=== PATIENT | female | born 1960 | race Caucasian/White ===

== ENCOUNTER → 2019-06-19 09:34 | Outpatient (CLI) | payer OTHER, SELFPAY ==
--- NOTE | ~2019-06-19 | CT_ITS ---
EXAMINATION: CT soft tissue neck wo/w con EXAM DATE: 06/19/2019 09:58 INDICATION: Localized swelling, mass, lump left supraclavicular region. TECHNIQUE: Spiral CT of the neck was performed without and then with intravenous injection of 75 mL O mnipaque 350. Axial, coronal and sagittal images were reviewed. The dose-length product (DLP) for t his examination was 710.17 mGy-cm. The exposure was tailored according to patient size (auto mA expo sure control), and iterative reconstruction (ASIR) was used as additional dose reduction technique. There is no prior study for comparison. FINDINGS: There is externally placed metallic marker left supraclavicular region. There is no mass de ep to this, no evidence of an encapsulated lipoma. No sialolithiasis. The thyroid gland is unremarka ble. The submandibular and parotid glands are symmetric. There is no cervical lymphadenopathy. T here are no masses identified. The superior mediastinum is unremarkable. The airway is unremarka ble. Parapharyngeal and pre-glottic fat planes are preserved. The opacified vasculature is patent . The orbits are unremarkable. Visualized sinuses and mastoid air cells are well aerated. Ther e is cervical spondylosis. IMPRESSION: Unremarkable neck CT examination. Reviewed, dictated and finalized at location A.
== END ==
PROVIDERS: PCP Family Medicine; Visit Provider Nurse Practitioner Family
DX: R22.1 Localized swelling, mass and lump, neck (principal)
CPT/HCPCS: 70492; Q9967

== ENCOUNTER 2019-12-19 17:50 | Emergency (ER) | payer OTHER, SELFPAY ==
--- NOTE | ~2019-12-19 | XR_ITS ---
EXAMINATION: XR chest 2V DATE: 12/19/2019 22:07 INDICATION: Shortness of breath and fever. TECHNIQUE: Frontal and lateral views of the chest were obtained. COMPARISON: Chest 2 views 01/14/2019 FINDINGS: The chest demonstrates clear lungs without pneumonia, pleural effusion, or pneumothorax. Th e heart size is normal. IMPRESSION: 1. No acute cardiopulmonary disease. Reviewed, dictated and finalized at location A.
[2019-12-19 19:10] VITALS: BP 142/61; PULSE 116; RESP 18; TEMP 37.7; O2SAT 99
--- NOTE | 2019-12-19 19:18 | ECG_ITS ---
Measurements Intervals [place] Rate: 116 P: 44 IL: 165 QRS: 177 QRSD: 82 T: 59 QT: 292 QTc: 407 Interpretive Statements SINUS TACHYCARDIA POSSIBLE LEFT ATRIAL ENLARGEMENT MINIMAL Q WAVES- HIGH LATERAL LEADS ANTERIOR INFARCT, AGE INDETERMINATE ABNORMAL ECG Electronically Signed On 12-19-2019 20:33:06 CDT by Rober Falk D.O.
[2019-12-19 19:32] LABS: Basophils Absolute Auto 0.1 K/mm3 (0.0-0.1); Basophils Percent Auto 0.4 % (0.2-1.2); Eosinophils Percent Auto 0.2 % (0-4.4); Hemoglobin 14.2 g/dL (12.0-15.0); Immature Granulocyte Absolute 0.07 K/mm3 (0.00-0.031); Immature Granulocyte Percent A 0.4 % (0-0.5); Lymphocytes Absolute Auto 1.56 K/mm3 (0.9-3.2); Lymphocytes Percent Auto 9.6 % (18.3-44.2); Mean Corpuscular HGB Conc 33.8 g/dl (32-36); Mean Corpuscular Hemoglobin 31.5 pg (26-34); Mean Corpuscular Volume 93.1 fl (80-100); Mean Platelet Volume 10.9 fl (7.4-10.4); Monocytes Absolute Auto 0.7 K/mm3 (0.1-0.6); Monocytes Percent Auto 4.2 % (2.6-8.5); Neutrophils Absolute Auto 13.9 K/mm3 (1.3-6.7); Neutrophils Percent Auto 85.2 % (45.5-73.1); Platelet Count Result 328 k/mm3 (150-375); Red Blood Count 4.51 M/mm3 (4.2-5.4); Red Cell Distribution Width 13.8 % (11.5-14.5); White Blood Count 16.3 K/mm3 (4.5-10.0)
[2019-12-19 19:45] LABS: Anion Gap 7 mmol/L (8-16); Blood Urea Nitrogen 16 mg/dL (7-17); Calcium 10.4 mg/dL (8.4-10.2); Carbon Dioxide 27 mmol/L (22-30); Chloride 101 mmol/L (98-107); Estimated CRCL calculation 53 ml/min; Estimated Glomerular Filt Rate 57; Glucose 134 mg/dL (65-105); Potassium 4.2 mmol/L (3.4-5.0); Sodium 135 mmol/L (137-145)
[2019-12-19 22:00] VITALS: BP 124/73; PULSE 89; RESP 18; O2SAT 97
[2019-12-19] MEDS: ALBUTEROL SULFATE (*SP) INHALER 1 PUFF (22:30)
--- NOTE | 2019-12-19 22:33 | ED.GENADULT ---
HPI - General Adult General Chief complaint: Shortness of Breath/Dyspnea Stated complaint: fever, sob, hx asthma Time Seen by Provider: 12/19/19 21:50 Source: patient Mode of arrival: ambulatory Limitations: no limitations History of Present Illness HPI narrative: This patient is a 59 year old female with history of asthma who presents for evaluation of fever, sob. Patient states she has had sob and a nonproductive cough for 2 days. She has also had increasing sob since yesterday. She states she has severe asthma and she has been using her inhaler more. This afternoon at 2 pm she developed a fever of 100F, sob, nausea and frontal headache. She took ibuprofen at that time. She also reports midsternal chest pain that has been present for 24 hours. This pain has been constant and it is worse with cough. She describes her pain has pressure. Related Data Home Medications Medication Instructions Recorded Confirmed albuterol sulfate 90 mcg/actuation 1 puff INHALATION Q4H PRN 06/13/19 06/13/19 aerosol inhaler alprazolam 0.5 mg tablet 0.5 mg PO DAILY PRN 06/13/19 06/13/19 fluticasone 500 mcg-salmeterol 50 1 inhalation INHALATION Q12H 06/13/19 06/13/19 mcg/dose blistr powdr for inhalation zolpidem 5 mg tablet 5 mg PO HS 06/13/19 06/13/19 Allergies Allergy/AdvReac Type Severity Reaction Status Date / Time azithromycin Allergy Intermediate Hives Verified 12/19/19 19:16 erythromycin base Allergy Unknown TACHY Verified 12/19/19 19:15 HEARTRATE hydrocodone Allergy Unknown N/V Verified 12/19/19 19:15 poison osorio extract Allergy Unknown Rash Verified 12/19/19 19:15 Review of Systems Review of Systems: All systems reviewed & are unremarkable except as noted in HPI and below Constitutional: Constitutional: Reports fever(s) ENT: Denies sore throat Cardiovascular: Cardiovascular: Reports chest pain and Denies radiating jaw, neck or arm pain Respiratory: Respiratory: Reports cough, Reports dyspnea and Denies wheezing Gastrointestinal: Gastrointestinal: Denies abdominal pain, Denies diarrhea, Reports nausea and Denies vomiting Neurologic: Reports headache(s) PMFSH Past Medical History Medical History (Updated 12/20/19 @ 00:15 by Pilar Jean MD) Asthma Depression Surgical History Surgical History (Updated 06/13/19 @ 08:46 by Leatha Holley) H/O: S/P appendectomy S/P knee surgery Social History Social History (Updated 06/13/19 @ 08:46 by Leatha Holley) Smoking status: Never smoker Alcohol intake: current Gender identity (if verbalized by the patient): Female Exam Const: General: no acute distress and alert Orientation/consciousness: patient oriented x3 HENMT: Head: normocephalic and atraumatic Face and sinus: face symmetric Mouth: Yes Normal oral and palatal mucosa present, Yes lip normal, Yes oropharynx normal and Yes moist mucous membranes Throat: tonsils normal and uvula midline Eyes: Pupils: Equal, round and reactive pupils present EOM: EOMs intact bilaterally Neck: Neck: normal visual inspection Chest: Chest palpation & inspection: tenderness sternum Resp: Effort & Inspection: normal respiratory effort, no retractions and no use of accessory muscles Auscultation: clear to auscultation bilaterally Other: talking in complete sentences Cardio: Rate: regular rate Rhythm: regular rhythm Heart sounds: no murmurs GI: GI Palp: Yes Soft to palpation, No Tenderness to palpation present (GI), No Guarding due to palpation present (GI) and No Rigid due to palpation Back/Spine/Pelvis: Back: no CVA tenderness Skin: General skin exam: normal color Rashes: no rashes Neuro: General: patient oriented x3, moves all extremities and CN's II-XI intact bilaterally Course Reevaluation(s) Reevaluation #1: Patient states she feels better. Her headache is resolving. I discussed chest xray and ua clear. She does have leukocytosis. This seems unlikely b
[2019-12-19 22:34] VITALS: PULSE 95; RESP 20
[2019-12-19 22:37] LABS: Alanine Aminotransferase 30 U/L (4-35); Albumin Level 4.9 g/dL (3.5-5.1); Alkaline Phosphatase 92 U/L (38-126); Aspartate Amino Transferase 36 U/L (14-36); CRP 3.2 mg/dL (<1.0)
[2019-12-19 22:39] LABS: Prothrombin Time 12.9 Seconds (11.1-14.7)
[2019-12-19] MEDS: ONDANSETRON INJ 4 MG/2 ML VIAL IV PUSH (22:39)
[2019-12-19] MEDS: SODIUM CHLORIDE 0.9% IV 1,000 ML 999 ML IV CONT (22:39)
[2019-12-19 22:40] LABS: Partial Thromboplastin Time 33.1 SECONDS (22.3-36.8)
[2019-12-19 22:42] LABS: D Dimer 0.29 ug/mL (<0.48)
[2019-12-19 22:45] LABS: Lactic Acid Reflex 0.6 mmol/L (0.7-2.1)
[2019-12-19 22:46] LABS: Troponin I < 0.012 ng/mL (0.000-0.034)
[2019-12-19] MEDS: ALBUTEROL SULFATE (*SP) AEROSOL 1 PUFF 6 PUFF INHALATION (23:11)
[2019-12-19 23:30] VITALS: BP 110/68; PULSE 83; RESP 18; O2SAT 98
[2019-12-19 23:53] LABS: Add Urine Microscopic? NO; Appearance Urine Clear (Clear); Bilirubin Urine Negative (Negative); Blood Urine Negative (Negative); Color Urine Straw (Yellow); Glucose Urine UA Negative (Negative); Ketones Urine Negative (Negative); Leukocyte Esterase Ur Negative LEU/UL (Negative); Nitrate Urine Negative (Negative); Protein Urine Negative (Negative); Specific Grav Ur 1.006 (1.001-1.035); Urobilinogen Urine Negative mg/dL (<2.0)
[2019-12-20] MEDS: predniSONE 20 MG TABLET 60 MG PO (00:31)
[2019-12-20] MEDS: DOXYCYCLINE HYCLATE 100 MG TABLET PO (00:32)
[2019-12-20 00:39] VITALS: BP 98/62; PULSE 84; RESP 18; O2SAT 97
[2019-12-20 13:52] LABS: SARS-CoV-2 RNA PCR Negative
== END 2019-12-20 00:40 | disposition home or self-care (01) ==
PROVIDERS: Emergency Medicine; Emergency Provider General Practice; PCP Family Medicine
DX: J45.901 Unspecified asthma with (acute) exacerbation (principal); D72.829 Elevated white blood cell count, unspecified; Z20.828 Contact with and (suspected) exposure to other viral communicable diseases; R94.31 Abnormal electrocardiogram [ECG] [EKG]
CPT/HCPCS: 36415; 71046; 80048; 80076; 81003; 83605; 84484; 85025; 85380; 85610; 85730; 86140; 87635; 93005; 96361; 96365; 96375; 99284; A9270; C9803; J0131; J2405; J7030; J7512; U0003

== ENCOUNTER 2020-09-05 14:13 | Emergency (ER) | payer OTHER, SELFPAY ==
[2020-09-05 14:24] VITALS: BP 107/71; PULSE 80; RESP 18; TEMP 36.8; O2SAT 99
--- NOTE | 2020-09-05 14:48 | ED.GENADULT ---
HPI - General Adult General Chief complaint: Extremity Problem,Nontraumatic Stated complaint: Rt ankle Source: patient Mode of arrival: ambulatory Limitations: no limitations History of Present Illness HPI narrative: Patient presents for evaluation of pain in the right Achilles tendon region. She indicates she has had some discomfort in the affected area for the last month. Yesterday she was quite active going to a number of activities outdoors noted swelling overlying and adjacent to the Achilles tendon. States the pain in the affected area is constant, rated 8 out of 10 in severity, without descriptive quality, worse with weightbearing and movement. She tried taking some ibuprofen which helps somewhat. The past tramadol has helped alleviate pain for her. She denies any loss of range of motion and denies any paresthesias. Related Data Home Medications Medication Instructions Recorded Confirmed albuterol sulfate 90 mcg/actuation 1 puff INHALATION Q4H PRN 06/13/19 09/03/20 aerosol inhaler Allergies Allergy/AdvReac Type Severity Reaction Status Date / Time azithromycin Allergy Intermediate Hives Verified 09/03/20 08:26 erythromycin base Allergy Unknown TACHY Verified 09/03/20 08:26 HEARTRATE hydrocodone Allergy Unknown N/V Verified 09/03/20 08:26 poison osorio extract Allergy Unknown Rash Verified 09/03/20 08:26 Review of Systems Review of Systems: Narrative: CONSTITUTIONAL: Denies fever, chills, or sweats. EYES: Denies visual changes, redness, or discharge. ENT: Denies rhinorrhea, congestion, sore throat, or otalgia. CARDIOVASCULAR: Denies chest pain, palpitations, or edema. RESPIRATORY: Denies cough or dyspnea. GASTROINTESTINAL: Denies abdominal pain, nausea, vomiting, or diarrhea. GENITOURINARY: Denies dysuria or hematuria. SKIN: Denies rash or itching. MUSCULOSKELETAL: Reports pain and swelling overlying and adjacent to the right Achilles tendon. Denies back pain or myalgia. NEUROLOGIC: Denies headache, numbness, dizziness, or weakness. PSYCHIATRIC: Denies anxiety or depression. [facility] Past Medical History Medical History Asthma Depression Surgical History Surgical History H/O: S/P appendectomy S/P knee surgery Social History Social History Smoking status: Never smoker Second hand tobacco smoke exposure: Yes Alcohol intake: current Drinks per week: 4 Gender identity (if verbalized by the patient): Female Exam Narrative: Exam Narrative: GENERAL: Well-appearing, well-nourished, and in no acute distress. HEAD: Normocephalic, atraumatic. EYES: PERRLA and EOMI. ENT: Nares clear, no rhinorrhea or epistaxis. Mucous membranes moist. Oropharynx without tonsillar hypertrophy exudate or other lesions. Bilateral TMs pearly villarreal nonbulging NECK: Supple. No adenopathy or masses. No carotid bruits or JVD CHEST: Clear to auscultation. No respiratory distress. No wheezes rales or rhonchi HEART: Regular rate and rhythm. No murmur heard. Normal peripheral pulses. ABDOMEN: Soft, nontender, nondistended, normal active bowel sounds. EXTREMITIES: Soft tissue swelling overlying the right Achilles tendon with associated tenderness. There is no crepitus or deformity in the right ankle. She is able to dorsi and plantarflex the right foot. Negative Rosario's test SKIN: Warm, dry, no rash. NEURO: No focal deficits. Alert and oriented x3. PSYCH: Normal mood and affect. Course Course Emergency Course: This is a 59-year-old female who presents with pain and swelling over the right Achilles tendon. It appears that she has an Achilles tendinitis. There does not appear to be full disruption in the Achilles tendon. No signs test was negative. She has no pain in the medial or lateral malleolus and no range of motion deficits. I
== END 2020-09-05 14:58 | disposition home or self-care (01) ==
PROVIDERS: Emergency Provider Nurse Practitioner; PCP Internal Medicine
DX: M25.571 Pain in right ankle and joints of right foot (principal); M76.61 Achilles tendinitis, right leg; J45.909 Unspecified asthma, uncomplicated
CPT/HCPCS: 99213; G0463

== ENCOUNTER 2020-12-13 14:41 | Outpatient (CLI) | payer OTHER, SELFPAY ==
--- NOTE | 2020-12-13 16:19 | WPDPFTINT ---
PFT Procedure Performed PFT Procedure Performed Spirometry with Pre/Post Bronchodilator Plethysmography (Lung Vol) Diffusing Cap (DLCO) Flow Vol Loop PFT Interpretation This is a pulmonary function test with pre and post-bronchodilator spirometry, plethysmography and diffusing capacity. The test was performed and results interpreted in accordance with the 2019 and 2005 ATS/ERS Task Force guidelines respectively using the Global Lung Function Initiative-2012 reference equations. Patient demonstrated good effort and cooperation. Reproducibility criteria were met. The quality of the pre bronchodilator spirometry maneuver was Grade C and post bronchodilator spirometry maneuver was Grade A. Findings: Spirometry: There is decreased maximal expiratory airflow at all lung volumes with a mildly concave expiratory flow tracing. The pre bronchodilator FVC is 3.24 L, 104% predicted. The pre bronchodilator FEV1 is 1.85 L, 75% predicted. The FEV1: FVC ratio is 57%. The post bronchodilator FVC is 3.13 L, representing a 3% decrease. The post bronchodilator FEV1 is 2.08 L, representing to a 12% increase. Plethysmography: The total lung capacity of 5.23 L, 107% predicted. Functional residual capacity is 2.46 L, 89% predicted. The residual volume is 1.99 L, 105% predicted. Diffusion capacity: The absolute diffusion capacity is 17.2, 80% predicted. The diffusing capacity corrected for alveolar volume is 3.92, 87% predicted. Impression: There is a mild obstructive abnormality with significant improvement after inhaling a single dose of albuterol. The lung volumes are normal. The diffusing capacity is normal. There are no prior studies for comparison
== END 2020-12-13 14:42 | disposition home or self-care (01) ==
LOC: ANHPFT 14:45
PROVIDERS: PCP Family Medicine; Visit Provider Allergy & Immunology
DX: J45.40 Moderate persistent asthma, uncomplicated (principal)
CPT/HCPCS: 94060; 94726; 94729

== ENCOUNTER 2020-12-22 07:43 | Outpatient (CLI) | payer OTHER, SELFPAY ==
--- NOTE | ~2020-12-22 | MM_ITS ---
EXAMINATION: MM screening evelyn BI w julius HISTORY: Screening mammogram TECHNIQUE: Craniocaudal and mediolateral oblique 3-D tomosynthesis images were obtained and synthetic 2-D images were generated. CAD analysis was submitted and interpreted. COMPARISON: 06/01/2017, 09/29/2014 bilateral digital screening mammogram examinations BREAST PARENCHYMAL COMPOSITION: There are scattered areas of fibroglandular density. FINDINGS: There is no evidence of suspicious mass, calcification, or architectural distortion to sugg est malignancy in either breast. There has been no suspicious interval change. IMPRESSION: 1. No mammographic evidence of malignancy. 2. Recommend routine screening mammography in one year. BI-RADS Category 1: Negative Reviewed, dictated and finalized at location A.
== END 2020-12-22 07:44 | disposition home or self-care (01) ==
LOC: ANHIMG 07:44
PROVIDERS: PCP Family Medicine; Visit Provider Obstetrics & Gynecology
DX: Z12.31 Encounter for screening mammogram for malignant neoplasm of breast (principal)
CPT/HCPCS: 77063; 77067

== ENCOUNTER → 2021-05-04 12:41 | Outpatient (CLI) | payer OTHER, SELFPAY ==
--- NOTE | ~2021-05-04 | XR_ITS ---
XR chest 2V DATE: 05/04/2021 12:51 INDICATION: Preprocedural examination TECHNIQUE: 2 views COMPARISON: 12/19/2019 2 view chest FINDINGS: Normal heart size. No hilar or mediastinal enlargement. No pulmonary infiltrate or consolid ation, pleural effusion or pulmonary vascular congestion or pneumothorax. IMPRESSION: No active cardiopulmonary disease Reviewed, dictated and finalized at location B. GE PREVENTION COORDINATOR
== END ==
PROVIDERS: PCP Family Medicine; Visit Provider Family Medicine
DX: Z01.812 Encounter for preprocedural laboratory examination (principal); J45.909 Unspecified asthma, uncomplicated
CPT/HCPCS: 71046

== ENCOUNTER 2022-03-16 16:37 | Outpatient (CLI) | payer BC, SELFPAY ==
--- NOTE | ~2022-03-16 | MM_ITS ---
EXAMINATION: MM screening evelyn BI w julius HISTORY: Screening TECHNIQUE: Craniocaudal and mediolateral oblique 3-D tomosynthesis images were obtained and synthetic 2-D images were generated. CAD analysis was submitted and interpreted. COMPARISON: Comparison to multiple prior studies sequentially, with oldest reviewed study dated 05/2013. BREAST PARENCHYMAL COMPOSITION: There are scattered areas of fibroglandular density. FINDINGS: There is no evidence of suspicious mass, calcification, or architectural distortion to sugg est malignancy in either breast. There has been no suspicious interval change. IMPRESSION: 1. No mammographic evidence of malignancy. 2. Recommend routine screening mammography in one year. BI-RADS Category 1: Negative Reviewed, dictated and finalized at location B. COAT SEWER
== END 2022-03-16 16:38 | disposition home or self-care (01) ==
PROVIDERS: PCP Family Medicine; Visit Provider Obstetrics & Gynecology
DX: Z12.31 Encounter for screening mammogram for malignant neoplasm of breast (principal)
CPT/HCPCS: 77063; 77067

== ENCOUNTER 2023-08-06 09:58 | Emergency (ER) | payer BC, SELFPAY ==
--- NOTE | ~2023-08-06 | XR_ITS ---
EXAMINATION: XR ankle LT min 3V DATE: 08/06/2023 10:37 INDICATION: Left ankle pain and swelling. Fall. TECHNIQUE: 4 views of left ankle were obtained. COMPARISON: None. FINDINGS: Bone alignment is normal. No fracture. Joint spaces are normal. There are enthesophytes at the posterior and plantar aspects of calcaneal tuberosity. Ankle soft tissue swelling is noted. IMPRESSION: 1. No fracture. Reviewed, dictated and finalized at location A. IMPRESSION: 1. No fracture.
[2023-08-06 10:12] VITALS: BP 130/71; PULSE 60; RESP 18; TEMP 36.3; O2SAT 98
--- NOTE | 2023-08-06 10:28 | ED.LOWEXIN ---
HPI - Extremity Injury (Lower) General Chief Complaint: Extremity Problem,Nontraumatic Stated Complaint: Left Ankle Injury Time Seen by Provider: 08/06/23 10:37 Source: patient and RN notes reviewed Mode of arrival: ambulatory Limitations: no limitations History of Present Illness HPI Narrative: 62-year-old female presents with concern for injury after a fall. She reports she tripped and hit her chest on the railing of her house boat, she rolled her ankle and landed on her knee. She reports she has some bruising to the left chest, left upper arm, knee. She reports her ankle in her near bothering her the most. She denies any chest pain, pain with breathing. She reports she has been using a wrap on her ankle. MD complaint: knee injury and ankle injury Related Data Home Medications Medication Instructions Recorded Confirmed multivitamin 1 tablet PO DAILY 10/22/20 05/04/21 Allergies Allergy/AdvReac Type Severity Reaction Status Date / Time azithromycin Allergy Intermediate Hives Verified 08/06/23 10:17 erythromycin base Allergy Unknown TACHY Verified 08/06/23 10:17 HEARTRATE poison osorio extract Allergy Unknown Rash Verified 08/06/23 10:17 hydrocodone AdvReac Unknown N/V Verified 08/06/23 10:17 Review of Systems Review of Systems: CONSTITUTIONAL: Denies malaise, chills, sweats, or fever. SKIN: Denies rash or itching, open skin, laceration, abrasion, redness, warmth, swelling. MUSCULOSKELETAL: Reports left ankle and knee knee pain, swelling, bruising of the knee NEUROLOGIC: Denies numbness, weakness All systems reviewed & are unremarkable except as noted in HPI and below PMFSH Past Medical History Medical History Allergies Annual physical exam Anxiety Arthritis Asthma Asthma Depression Screening for cholesterol level Screening for thyroid disorder Surgical History Surgical History H/O elbow surgery H/O wisdom tooth extraction H/O: Hx of tonsillectomy S/P appendectomy S/P knee surgery Family History Family History Mother Diabetes mellitus Hypertension Cerebrovascular accident Son Asthma Depression Social History Social History Smoking status: Never smoker Second hand tobacco smoke exposure: Yes Alcohol intake: current Drinks per week: 7 Alcohol use details: wine/whiskey Substance use: current Substance use type: marijuana Other substance usage details: gummy night only and CBC/THC lotion Living arrangements: with family 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 There is no relevant family history pertinent to the presenting complaint Exam Narrative: GENERAL: Well-appearing, well-nourished, and in no acute distress. HEAD: Normocephalic, atraumatic. EYES: PERRLA, conjunctivae clear NECK: Supple. CHEST: Speaks in full sentences. No respiratory distress. HEART: Regular rate and rhythm. Normal and equal peripheral pulses. EXTREMITIES: Left lower extremity has grossly normal strength and sensation, gross normal range of motion. Mild anterior knee edema, abrasion, ecchymosis. Lateral ankle edema. Normal sensation with sensitivity to light touch and pain. Knee and ankle tenderness. No open wounds, no skin tenting, no devitalized tissue or atrophy, no trophic changes, no obvious deformity, alignment normal, nearby joints and structures intact. Distal pulses palpable and equal bilaterally, skin warm, dry, pink. Capillary refill less than 3 seconds. SKIN: Warm, dry, no rash. NEURO: Alert
== END 2023-08-06 10:59 | disposition home or self-care (01) ==
PROVIDERS: Emergency Provider Nurse Practitioner; PCP Family Medicine
DX: S93.402A Sprain of unspecified ligament of left ankle, initial encounter (principal); S80.02XA Contusion of left knee, initial encounter; W01.0XXA Fall on same level from slipping, tripping and stumbling without subsequent striking against object, initial encounter
CPT/HCPCS: 73610; 99213; G0463

== ENCOUNTER 2023-12-21 15:09 | Outpatient (CLI) | payer OTHER, SELFPAY ==
--- NOTE | ~2023-12-21 | MM_ITS ---
EXAMINATION: MM screening evelyn BI w julius HISTORY: Screening mammogram TECHNIQUE: Craniocaudal and mediolateral oblique 3-D tomosynthesis images were obtained and synthetic 2-D images were generated. CAD analysis was submitted and interpreted. COMPARISON: 03/16/2022, 12/22/2020, 06/01/2017 BREAST PARENCHYMAL COMPOSITION:Not Dense. The breasts are almost entirely fatty FINDINGS: No suspicious mass, calcification, or architectural distortion are identified in either marissa ast to suggest malignancy. There has been no suspicious interval change. IMPRESSION: No mammographic evidence of malignancy. Recommend routine screening mammography in one year. BI-RADS Category 1: Negative Reviewed, dictated and finalized at location .
== END 2023-12-21 15:10 | disposition home or self-care (01) ==
LOC: ANHIMG 15:26
PROVIDERS: PCP Physician Assistant Medical; Visit Provider Obstetrics & Gynecology
DX: Z12.31 Encounter for screening mammogram for malignant neoplasm of breast (principal)
CPT/HCPCS: 77063; 77067

== ENCOUNTER 2024-05-26 07:45 | Outpatient (NON) | payer OTHER, SELFPAY ==
--- OUTSIDE RECORDS SUMMARY | 2024-05-27 07:54 | XMS_ITS | Continuity of Care Document ---
Author Organization [facility] Address [address] [place] [address] Phone Care Team Providers Care Hoof And Shoe Inspector Name Role Phone Farnsworth OD, Agustin Unavailable Unavailable Advance Directives Directive Yes / No Effective Date File Name No Information Encounters Encounter Description Practice Location Reason(s) For Visit Diagnoses Date Provider Providers Copied on Encounter [facility], [address], [place], [place], [id number], [place] tel:[phone] [facility] No Information Mar-0 8-200 2 Farnsworth OD Agustin. [address] , [address], [place], [address], [place]. tel:[phone] Family History Family Member Type Diagnosis Age At Onset No Information Payers Payer name Insurance type Covered democrat ID Authoriza tion(s) No Information Social History [...]
== END 2024-05-26 07:46 | disposition home or self-care (01) ==
LOC: ANHLAB 05-27 07:48
PROVIDERS: PCP Nurse Practitioner Family; Visit Provider Internal Medicine Gastroenterology
DX: D12.4 Benign neoplasm of descending colon (principal); D12.3 Benign neoplasm of transverse colon; Z12.11 Encounter for screening for malignant neoplasm of colon
CPT/HCPCS: 88305

== ENCOUNTER 2024-05-26 08:42 | Day surgery (SDC) | payer OTHER, SELFPAY ==
[2024-03-03 07:51] VITALS: BMI 31.8
[2024-05-05 12:56] VITALS: BMI 32.0
--- NOTE | 2024-05-26 06:58 | P.PNAN_ITS ---
Anes - Initial Pre Proc Eval Procedure: Operation Date: 05/26/24 11:00 Proposed Procedures p Diagnostic Colonoscopy - Henry Chavez MD Date/Time: 05/26/24 06:58 Surgeon: Henry Chavez MD Pre Op Diagnosis: R19.5 Other Fecal Abnormalities Patient Data Age: 63 Gender: F Height: 1.57 m Weight: 79.5 kg Allergies Allergy/AdvReac Type Severity Reaction Status Date / Time azithromycin Allergy Intermediate Hives Verified 05/26/24 10:27 erythromycin base Allergy Unknown TACHY Verified 05/26/24 10:27 HEARTRATE poison osorio extract Allergy Unknown Rash Verified 05/26/24 10:27 hydrocodone AdvReac Unknown N/V Verified 05/26/24 10:27 Home Medications ?Medication ?Instructions ?Recorded ?Confirmed ?Type multivitamin 1 tablet PO DAILY 10/22/20 05/26/24 History albuterol sulfate 90 mcg/actuation 1 puff inhalation Q4H PRN 10/31/23 05/26/24 Rx aerosol inhaler shortness of breath or wheezing #8.5 grams atorvastatin 10 mg tablet 10 mg PO DAILY #90 tabs 10/31/23 05/26/24 Rx estradiol 10 mcg vaginal tablet 10 mcg vaginal 2XW 02/05/24 05/26/24 History (Vagifem) fluticasone fur. 200 mcg-umeclid 1 inh inhalation DAILY #60 ea 02/05/24 05/26/24 Rx 62.5 mcg-vilant 25 mcg inhalat.powder (Trelegy Ellipta) Patient hx anesthesia problems: none Family hx anesthesia problems: none Results Review: All pre-operative results and documents have been reviewed as part of the pre- operative evaluation. [facility] Past Medical History Medical History (Updated 05/26/24 @ 12:10 by Henry Chavez MD) Anxiety Depression Asthma Surgical History Surgical History Hx of tonsillectomy H/O wisdom tooth extraction H/O elbow surgery S/P knee surgery H/O: S/P appendectomy Family History Family History Mother Diabetes mellitus Hypertension Cerebrovascular accident Son Asthma Depression Social History Social History Social History: 01/31/24 Very confident with medical forms Smoking status: Never smoker Second hand tobacco smoke exposure: Yes Alcohol intake: current Drinks per week: 5 Alcohol use details: wine/whiskey Substance use: current Substance use type: marijuana Other substance usage details: hasn't used for >2 months Do You Feel Safe in your Home?: Yes Lack of Transportation: No Lack of Food: Never True Current Housing: I Have Housing Concerned About Future Housing: No Difficulty Paying Gas/Electric Bills: No Difficulty Paying for Meds: No Currently Unemployed: No Education: Master's Degree or Higher Difficulty w/ Childcare or Family Care: No Living arrangements: with family Occupation/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: occupation 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 Gender identity (if verbalized by the patient): Female Spiritual care concerns: No Agree to blood products: Yes Anes - Eval Final PreProcedure Day of Procedure 05/26/24 06:58 Patient weight: obese Heart: regular rate and rhythm Lungs: clear to auscultation Airway: Mallampati scale class II Neurological: alert and oriented Last oral intake: >/= 8 hours ASA classification: III Emergent: no Anesthetic plan: proceed Anesthesia type and monitoring: general GIVS and standard monitoring Results Review: All pre-operative results and documents have been reviewed as part of the pre- operative evaluation. Informed Consent: The patient's anesthetic plan and its attendant risks and benefits were discussed with the patient/family/POA. Questions were solicited and answers provided to the satisfaction of the patient/family/POA.
[2024-05-26 10:29] VITALS: BP 120/93; PULSE 87; RESP 14; TEMP 36.5; O2SAT 98; BMI 31.9
[2024-05-26] MEDS: LACTATED RINGERS 1,000 ML 150 ML IV CONT (10:45)
--- OUTSIDE RECORDS SUMMARY | 2024-05-26 11:24 | XMS_ITS | Continuity of Care Document ---
Author Organization [facility] Address [address] [place] [address] Phone Care Team Providers Care Animal Ride Attendant Name Role Phone Farnsworth OD, Agustin Unavailable Unavailable Advance Directives Directive Yes / No Effective Date File Name No Information Encounters Encounter Description Practice Location Reason(s) For Visit Diagnoses Date Provider Providers Copied on Encounter [facility], [address], [place], [place], [id number], [place] tel:[phone] [facility] No Information Mar-0 8-200 2 Farnsworth OD Agustin. [address] , [address], [place], [address], [place]. tel:[phone] Family History Family Member Type Diagnosis Age At Onset No Information Payers Payer name Insurance type Covered alliance party ID Authoriza tion(s) No Information Social History Type Description Quantity Date Captured Comments Sex Female Smoking Status No Information Chief Complaint And Reason For Visit No Information Reason For Referral Reason For Referral No Information History Of Present Illness Encounter Date Complaint History Of Prese nt Illness No Information Functional Status Date Functional Assessmen t No Information Instructions Date Instruction Additional Infor mation No Information Assessments Type Assessment Date No Information Patient Care Teams Name Effective Dates (start - stop) Status Members No Information
--- NOTE | 2024-05-26 12:09 | PM.IMHP ---
H&P: HPI History of Present Illness Date/Time: 05/26/24 12:09 Chief Complaint: Screening colonoscopy Narrative: This is the patient's first colonoscopy. There are no GI symptoms and there is no family history of colorectal cancer. Review of Systems Review of Systems: All systems reviewed & are unremarkable except as noted in HPI and below PMFSH Past Medical History Medical History (Updated 05/26/24 @ 12:10 by Henry Chavez MD) Anxiety Depression Asthma Surgical History Surgical History Hx of tonsillectomy H/O wisdom tooth extraction H/O elbow surgery S/P knee surgery H/O: S/P appendectomy Family History Family History Mother Diabetes mellitus Hypertension Cerebrovascular accident Son Asthma Depression Social History Social History Social History: 01/31/24 Very confident with medical forms Smoking status: Never smoker Second hand tobacco smoke exposure: Yes Alcohol intake: current Drinks per week: 5 Alcohol use details: wine/whiskey Substance use: current Substance use type: marijuana Other substance usage details: hasn't used for >2 months Do You Feel Safe in your Home?: Yes Lack of Transportation: No Lack of Food: Never True Current Housing: I Have Housing Concerned About Future Housing: No Difficulty Paying Gas/Electric Bills: No Difficulty Paying for Meds: No Currently Unemployed: No Education: Master's Degree or Higher Difficulty w/ Childcare or Family Care: No Living arrangements: with family 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/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: occupation 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 200 mcg-umeclid 1 inh inhalation DAILY #60 ea 02/05/24 05/26/24 Rx 62.5 mcg-vilant 25 mcg inhalat.powder (Trelegy Ellipta) Allergies Allergy/AdvReac Type Severity Reaction Status Date / Time azithromycin Allergy Intermediate Hives Verified 05/26/24 10:27 erythromycin base Allergy Unknown TACHY Verified 05/26/24 10:27 HEARTRATE poison osorio extract Allergy Unknown Rash Verified 05/26/24 10:27 hydrocodone AdvReac Unknown N/V Verified 05/26/24 10:27 Vital Signs Vital Signs - 24 hr 05/26/24 10:29 Temperature 97.7 F Pulse Rate 87 Respiratory Rate 14 Blood Pressure 120/93 H Pulse Oximetry 98 Oxygen Delivery Room Air Exam Const: General: cooperative and healthy appearing Resp: Effort & Inspection: normal respiratory effort and able to speak in complete sentences Auscultation: clear to auscultation bilaterally Cardio: Rate: regular rate Rhythm: regular rhythm GI: Inspection: normal to inspection GI Palp: No No hepatosplenomegaly present Auscultation: normal bowel sounds Rectal Exam: deferred Skin: General skin exam: normal color Psych: Appearance: grossly normal Mental Status: mental status grossly normal Assessment and Plan Assessment and plan (1) Encounter for screening colonoscopy: Code(s): Z12.11 - Encounter for screening for malignant neoplasm of colon Status: Acute Assessment and Plan: The patient is deemed a good candidate for the procedure. Consent signed. Will proceed.
[2024-05-26] MEDS: SIMETHICONE ORAL SUSPENSION 20 MG/0.3 ML 30 ML BOTTLE 0.6 ML IRRIGATION (12:27)
[2024-05-26 12:39] VITALS: BP 103/62; PULSE 74; RESP 15; O2SAT 98
[2024-05-26 12:49] VITALS: BP 117/71; PULSE 70; RESP 16; O2SAT 96
[2024-05-26 12:59] VITALS: BP 130/72; PULSE 58; RESP 16; O2SAT 98
--- NOTE | 2024-05-26 13:16 | WPDANESPN ---
Anes - Prog Note Post-Op Date/Time: 05/26/24 13:16 Cardiovascular status: normal Respiratory status: normal Airway patency: baseline Mental status: baseline Post-Op hydration status: normal Vital Signs: Last Vital Signs Temp 36.5 C 05/26/24 10:29 Pulse 58 L 05/26/24 12:59 Resp 16 05/26/24 12:59 BP 130/72 05/26/24 12:59 Pulse Ox 98 05/26/24 12:59 O2 Del Method Room Air 05/26/24 12:59 Pain Score (VAS): 0 I/O: Intake & Output 05/25/24 05/26/24 05/26/24 23:59 07:59 15:59 Intake Total 800 Balance 800 Post-procedural complaints: none Patient Feedback: Patient satisfied with anesthetic care. Other Findings: Patient vital signs back to baseline. Patient denies nausea and vomiting. Patient's pain under control. Patient OK for discharge.
== END 2024-05-26 13:07 | disposition home or self-care (01) ==
PROVIDERS: PCP Nurse Practitioner Family; Referring Provider Nurse Practitioner Family; Visit Provider Internal Medicine Gastroenterology
PROC: 0DJD8ZZ Inspection of Lower Intestinal Tract, Via Natural or Artificial Opening Endoscopic (ICD-10-PCS; CPT 45378; principal; 2024-05-26 11:00)
DX: Z12.11 Encounter for screening for malignant neoplasm of colon (principal); D12.2 Benign neoplasm of ascending colon; D12.3 Benign neoplasm of transverse colon; K57.30 Diverticulosis of large intestine without perforation or abscess without bleeding
CPT/HCPCS: 45385

== ENCOUNTER 2024-06-15 15:06 | Emergency (ER) | payer OTHER, SELFPAY ==
--- OUTSIDE RECORDS SUMMARY | 2024-06-15 15:08 | XMS_ITS | Continuity of Care Document ---
Author Organization [facility] Address [address] [place] [address] Phone Care Team Providers Care Desktop Operator Name Role Phone Farnsworth OD, Agustin Unavailable Unavailable Advance Directives Directive Yes / No Effective Date File Name No Information Encounters Encounter Description Practice Location Reason(s) For Visit Diagnoses Date Provider Providers Copied on Encounter [facility], [address], [place], [place], [id number], [place] tel:[phone] [facility] No Information Mar-0 8-200 2 Farnsworth OD Agustin. [address] , [address], [place], [address], [place]. tel:[phone] Family History Family Member Type Diagnosis Age At Onset No Information Payers Payer name Insurance type Covered constitution party ID Authoriza tion(s) No Information Social [...]
--- OUTSIDE RECORDS SUMMARY | 2024-06-15 15:11 | XMS_ITS | Continuity of Care Document ---
Author Organization [facility] Address [address] [place] [address] Phone Care Team Providers Care Classified Advertising Manager Name Role Phone Farnsworth OD, Agustin Unavailable Unavailable Advance Directives Directive Yes / No Effective Date File Name No Information Encounters Encounter Description Practice Location Reason(s) For Visit Diagnoses Date Provider Providers Copied on Encounter [facility], [address], [place], [place], [id number], [place] tel:[phone] [facility] No Information Mar-0 8-200 2 Farnsworth OD Agustin. [address] , [address], [place], [address], [place]. tel:[phone] Family History Family Member Type Diagnosis Age [...]
[2024-06-15 15:15] VITALS: BP 123/71; PULSE 116; RESP 16; TEMP 36.4; O2SAT 97
--- NOTE | 2024-06-15 15:34 | PC.NURSE ---
Addendum entered by Janet Bowser RN 06/15/24 15:43: episode lasted 1 minute, not 5. 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 Her caught her so she did not fall.
--- NOTE | 2024-06-15 15:36 | ED.NAVMDI ---
HPI - Nausea/Vomiting/Diarrhea General Chief complaint: Nausea/Vomiting/Diarrhea Stated complaint: vomiting/diarrhea Time Seen by Provider: 06/15/24 15:28 Source: patient, family () and RN notes reviewed Mode of arrival: ambulatory Limitations: no limitations History of Present Illness HPI Narrative: Patient presents today complaining of nausea, vomiting, diarrhea, abdominal pain since yesterday. Diarrhea is watery. Vomiting and diarrhea episodes have been numerous enough to be uncountable. Patient also complaining of a headache. She is unable to keep down any fluids at this time. Denies any blood or mucus in the stool. Denies any current fever. She just returned yesterday from a 1 week vacation in [place]. She has been taking some [id number] nausea medication without much relief. has no similar symptoms. 3 hours ago patient had a syncopal episode at home with loss of consciousness for approximately 1 minute. This LOC was witnessed by . Patient did not fall. Related Data Home Medications ?Medication ?Instructions ?Recorded ?Confirmed ?Last Taken ?Type multivitamin 1 tablet PO DAILY 10/22/20 05/26/24 Unknown History estradiol 10 mcg vaginal tablet 10 mcg vaginal 2XW 02/05/24 05/26/24 Unknown History (Vagifem) Allergies Allergy/AdvReac Type Severity Reaction Status Date / Time azithromycin Allergy Intermediate Hives Verified 06/15/24 15:16 poison osorio extract Allergy Unknown Rash Verified 06/15/24 15:16 erythromycin base AdvReac Unknown TACHY Verified 06/15/24 15:16 HEARTRATE hydrocodone AdvReac Unknown N/V Verified 06/15/24 15:16 Review of Systems Review of Systems: CONSTITUTIONAL: Denies body aches, fever, chills, or sweats. EYES: Denies visual changes, redness, or discharge. ENT: Denies rhinorrhea, congestion, sore throat, or otalgia. CARDIOVASCULAR: Denies chest pain, palpitations, or edema. RESPIRATORY: Denies cough or dyspnea. GASTROINTESTINAL: +nausea, vomiting, diarrhea, abdominal cramping GENITOURINARY: Denies dysuria or hematuria. SKIN: Denies rash, itching, or wounds. MUSCULOSKELETAL: Denies back pain, joint pain, or myalgia. NEUROLOGIC: Denies numbness, tingling, or weakness.+headache PSYCH: Denies depression or anxiety. PMFSH Past Medical History Medical History Anxiety Depression Asthma Surgical History Surgical History Hx of tonsillectomy H/O wisdom tooth extraction H/O elbow surgery S/P knee surgery H/O: S/P appendectomy Family History Family History Mother Diabetes mellitus Hypertension Cerebrovascular accident Son Asthma Depression Social History Social History Social History: 01/31/24 Very confident with medical forms Smoking status: Never smoker Second hand tobacco smoke exposure: Yes Alcohol intake: current Drinks per week: 5 Alcohol use details: wine/whiskey Substance use: current Substance use type: marijuana Other substance usage details: hasn't used for >2 months Do You Feel Safe in your Home?: Yes Lack of Transportation: No Lack of Food: Never True Current Housing: I Have Housing Concerned About Future Housing: No Difficulty Paying Gas/Electric Bills: No Difficulty Paying for Meds: No Currently Unemployed: No Education: Master's Degree or Higher Difficulty w/ Childcare or Family Care: No Living arrangements: with family 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 Please see nursing chart for further information. There is no relevant family history pertinent to the presenting complaint Exam Narrative: GENERAL: Mildly ill-appearing, well-nourished, diaphoretic HEAD: Normocephalic, atraumatic. EYES: EOMI. No redness or drainage. Conjunctivae normal. ENT: Mucous membranes pink and moist. NECK: Normal AROM. Supple. No lymphadenopathy. CHEST: No respiratory distress. Clear to auscultation. HEART: Regular rhythm. + tachycardic. No murmur appreciated. Normal peripheral pulses. ABDOMEN: Soft, nontender, nondistended, normal active bowel sounds. EXTREMITIES: Normal range of motion. No edema. SKIN: Warm, dry, no rash. Capillary refill normal. Normal skin turgor. NEURO: No focal deficits. Alert and oriented x3. Gait steady. PSYCH: Normal affect. No signs of depression or anxiety. Course Course Level of Care: Express Care Visit Vital Signs Vital signs: Vital Signs Temperature 97.6 F 06/15/24 15:15 Pulse Rate 116 H 06/15/24 15:15 Respiratory Rate 16 06/15/24 15:15 Blood Pressure 123/71 06/15/24 15:15 Pulse Oximetry 97 06/15/24 15:15 Oxygen Delivery Room Air 06/15/24 15:15 Temperature 97.6 F 06/15/24 15:15 Pulse Rate 116 H 06/15/24 15:15 Respiratory Rate 16 06/15/24 15:15 Blood Pressure 123/71 06/15/24 15:15 Pulse Oximetry 97 06/15/24 15:15 Oxygen Delivery Room Air 06/15/24 15:15 Reviewed Transfer Transfered to: [facility] Transportation: Other (Private vehicle) Transfer rationale: Syncopal episode, vomiting and diarrhea Accepting physician: Trevon MDM - Nausea/Vomiting/Diarrhea MDM Narrative Medical decision making narrative: Patient will be transferred to the ER for further evaluation and treatment. Differential Diagnosis Differential diagnosis: Likely traveler's diarrhea, food poisoning, gastroenteritis and other (Dehydration, electrolyte imbalance, syncope) Critical Care Time Critical Care Time Critical Care Time: No Discharge Plan Discharge Clinical Impression: Nausea vomiting and diarrhea Episode of syncope Qualifiers: Syncope type: unspecified Qualified Code(s): R55 - Syncope and collapse Patient Disposition: Acute Care Hospital Condition: Stable Patient Language: Vietnamese Prescriptions: No Action multivitamin Tablet 1 tablet PO DAILY estradiol [Vagifem] 10 mcg tablet 10 mcg vaginal 2XW Trelegy Ellipta 200-62.5-25 mcg blister with device 1 inh inhalation DAILY Qty: 60 5RF albuterol sulfate 90 mcg/actuation HFA aerosol inhaler 1 puff inhalation Q4H PRN (Reason: shortness of breath or wheezing) Qty: 8.5 1RF atorvastatin 10 mg tablet 10 mg PO DAILY Qty: 90 1RF Follow-up/Referrals: UNKNOWN,DOCTOR [Primary Care Provider] - Time of Disposition: 15:35
[2024-06-15 15:45] LABS: EDCOVIDSCREEN Negative (Negative); EDINFLUASCREEN Negative (Negative); EDINFLUBSCREEN Negative (Negative)
== END 2024-06-15 15:36 | disposition short-term general hospital (02) ==
LOC: EXPTROY 15:09
PROVIDERS: Emergency Provider Nurse Practitioner
DX: R11.2 Nausea with vomiting, unspecified (principal); R19.7 Diarrhea, unspecified; R55 Syncope and collapse; Z20.822 Contact with and (suspected) exposure to COVID-19; J45.909 Unspecified asthma, uncomplicated
CPT/HCPCS: 87426; 87804; 99212; G0463

== ENCOUNTER 2024-06-15 15:56 | Emergency (ER) | payer OTHER, SELFPAY ==
--- NOTE | ~2024-06-15 | CT_ITS ---
EXAMINATION: CT abdomen pelvis w con DATE: 06/15/2024 18:51 INDICATION: abd pain, vomiting TECHNIQUE: Computed tomography (CT) of the abdomen and pelvis was performed with 100 mL Omnipaque-350 intravenous contrast. Automated exposure control and iterative reconstruction technique were employe d. The dose-length product was 576.31 mGy-cm. COMPARISON: CT abdomen 07/19/2006. FINDINGS: Lower thorax: Unremarkable Liver: Normal. Biliary/Gallbladder: Gallbladder is normal. No bile duct dilation. Pancreas: No mass or duct dilation. Spleen: Normal. Adrenals:No mass. Kidneys: No suspicious mass, obstructing stone, or hydronephrosis. Simple left lower pole cyst. GI tract: Mild distal esophageal and antral wall edema. Uncomplicated appearing diverticulum projecti ng off the posterior aspect of the stomach. No small or large bowel dilation. Appendix not confidentl y visualized. No pericecal inflammatory process. Diverticulosis without diverticulitis. Mesentery/Peritoneum: No ascites, mass, or free air. Retroperitoneum: No mass. Pelvis: Nearly empty urinary bladder. Intramural bladder wall fat as can be seen with chronic cystiti s. No acute inflammatory change. Normal uterus and bilateral ovaries. Soft Tissues: Small, fat-containing of local hernia. Bones: No acute osseous finding. IMPRESSION: Mild esophagitis/antral gastritis. Otherwise, no acute abdominopelvic process detected. Reviewed, dictated and finalized at location K.
--- OUTSIDE RECORDS SUMMARY | 2024-06-15 15:58 | XMS_ITS | Continuity of Care Document ---
Author Organization [facility] Address [address] [place] [address] Phone Care Team Providers Care Lead Technologist In Cytogenetics Name Role Phone Farnsworth OD, Agustin Unavailable Unavailable Advance Directives Directive Yes / No Effective Date File Name No Information Encounters Encounter Description Practice Location Reason(s) For Visit Diagnoses Date Provider Providers Copied on Encounter [facility], [address], [place], [place], [id number], [place] tel:[phone] [facility] No Information Mar-0 8-200 2 Farnsworth OD Agustin. [address] , [address], [place], [address], [place]. tel:[phone] Family History Family Member Type Diagnosis Age [...]
[2024-06-15 16:27] VITALS: BP 107/72; PULSE 112; RESP 18; TEMP 36.8; O2SAT 95
--- NOTE | 2024-06-15 16:52 | ECG_ITS ---
Test Date: 2024-06-15 17:35:35 Measurements Intervals [place] Rate: 98 P: 41 NM: 146 QRS: 19 QRSD: 90 T: 101 QT: 315 QTc: 403 Interpretive Statements SINUS RHYTHM POSSIBLE LEFT ATRIAL ENLARGEMENT [-0.1mV P WAVE IN V1/V2] NONSPECIFIC ST & T-WAVE ABNORMALITY No previous ECG available for comparison Electronically Signed On 06-16-2024 15:12:10 CDT by Aren Velasquez M.D.
--- NOTE | 2024-06-15 17:16 | ED_ITS ---
HPI - Nausea/Vomiting/Diarrhea General Chief complaint: Nausea/Vomiting/Diarrhea Stated complaint: n/v/d Time Seen by Provider: 06/15/24 16:51 Source: patient Mode of arrival: wheelchair Limitations: no limitations History of Present Illness HPI Narrative: This is a 63-year-old female that presents to the emergency department for nausea, vomiting and diarrhea. Ongoing since yesterday. Reports she had a syncopal episode this morning. She was feeling lightheaded prior to. Reports history of syncopal episodes in the past. Reports her caught her, she did not sustain any injuries. Denies fevers. Related Data Home Medications ?Medication ?Instructions ?Recorded ?Confirmed ?Last Taken ?Type multivitamin 1 tablet PO DAILY 10/22/20 05/26/24 Unknown History estradiol 10 mcg vaginal tablet 10 mcg vaginal 2XW 02/05/24 05/26/24 Unknown History (Vagifem) Allergies Allergy/AdvReac Type Severity Reaction Status Date / Time azithromycin Allergy Intermediate Hives Verified 06/15/24 15:16 poison osorio extract Allergy Unknown Rash Verified 06/15/24 15:16 erythromycin base AdvReac Unknown TACHY Verified 06/15/24 15:16 HEARTRATE hydrocodone AdvReac Unknown N/V Verified 06/15/24 15:16 Review of Systems 2 Review of Systems: CONSTITUTIONAL: Denies fever GASTROINTESTINAL: Reports abdominal pain, nausea, vomiting, and diarrhea. GENITOURINARY: Denies dysuria or hematuria. All systems reviewed & are unremarkable except as noted in HPI and below PMFSH Past Medical History Medical History Anxiety Depression Asthma Surgical History Surgical History Hx of tonsillectomy H/O wisdom tooth extraction H/O elbow surgery S/P knee surgery H/O: S/P appendectomy Family History Family History Mother Diabetes mellitus Hypertension Cerebrovascular accident Son Asthma Depression Social History Social History Social History: 01/31/24 Very confident with medical forms Smoking status: Never smoker Second hand tobacco smoke exposure: Yes Alcohol intake: current Drinks per week: 5 Alcohol use details: wine/whiskey Substance use: current Substance use type: marijuana Other substance usage details: hasn't used for >2 months Do You Feel Safe in your Home?: Yes Lack of Transportation: No Lack of Food: Never True Current Housing: I Have Housing Concerned About Future Housing: No Difficulty Paying Gas/Electric Bills: No Difficulty Paying for Meds: No Currently Unemployed: No Education: Master's Degree or Higher Difficulty w/ Childcare or Family Care: No Living arrangements: with family 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 HEAD: Normocephalic, atraumatic. EYES: EOMI. ENT: Nares clear, no rhinorrhea or epistaxis. Mucous membranes moist. Oropharynx without tonsillar hypertrophy exudate or other lesions. NECK: Supple. No adenopathy or masses. CHEST: Clear to auscultation. No respiratory distress. No wheezes rales or rhonchi HEART: Regular rate and rhythm. No murmur heard. Normal peripheral pulses. ABDOMEN: Soft, nontender, nondistended, normal active bowel sounds. EXTREMITIES: Normal range of motion. No edema. SKIN: Warm, dry, no rash. NEURO: No focal deficits. Alert and oriented x3. PSYCH: Normal mood and affect Course Course Emergency Course: patient updated on her workup and agrees with plan of care Vital Signs Vital signs: Vital Signs Temperature 98.2 F 06/15/24 16:27 Pulse Rate 112 H 06/15/24 16:27 Respiratory Rate 18 06/15/24 16:27 Blood Pressure 107/72 06/15/24 16:27 Pulse Oximetry 95 06/15/24 16:27 Oxygen Delivery Room Air 06/15/24 16:27 Temperature 98.2 F 06/15/24 16:27 Pulse Rate 98 06/15/24 18:30 Respiratory Rate 16 06/15/24 18:30 Blood Pressure 124/69 06/15/24 18:30 Pulse Oximetry 97 06/15/24 18:30 Oxygen Delivery Room Air 06/15/24 16:27 MDM - Nausea/Vomiting/Diarrhea MDM Narrative Medical decision making narrative: Patient presents to the emergency department for abdominal pain, nausea, vomiting, diarrhea. She is afebrile and nontoxic appearing. Tachycardic upon arrival, this normalized with IV fluid hydration. CBC shows hemoconcentration. Metabolic panel some evidence of dehydration. Patient hydrated with a L of IV fluids. Urine without evidence of infection. Influenza and COVID screens are negative. CT abdomen pelvis shows mild esophagitis/gastritis. patient updated on her workup and agrees with plan of care. Tolerating PO challenge. She is to follow up with primary provider. She was given warnings to return to the ER Differential Diagnosis Differential diagnosis: Likely food poisoning, gastroenteritis, dehydration and other (covid, influenza, gastritis, GERD, biliary colic ) Lab Data Attestation: I reviewed the patient's lab results. 06/15/24 17:12 06/15/24 17:12 Labs: Lab Results 06/15/24 06/15/24 Range/Units 17:12 18:28 WBC 8.6 (4.5-10.0) K/mm3 RBC 5.01 (4.2-5.4) M/mm3 Hgb 15.2 H (12.0-15.0) g/dL Hct 46.3 (37.0-47.0) % MCV 92.4 (80-100) fl MCH 30.3 (26-34) pg MCHC 32.8 (32-36) g/dl RDW 14.0 (11.5-14.5) % Plt Count 319 (150-375) k/mm3 MPV 11.2 H (7.4-10.4) fl Immature Gran % (Auto) 0.3 (0-0.5) % Neut % (Auto) 91.0 H (45.5-73.1) % Lymph % (Auto) 3.7 L (18.3-44.2) % Cobb % (Auto) 4.9 (2.6-8.5) % Eos % (Auto) 0.0 (0-4.4) % Baso % (Auto) 0.1 L (0.2-1.2) % Lymph # (Auto) 0.32 L (0.9-3.2) K/mm3 Cobb # (Auto) 0.4 (0.1-0.6) K/mm3 Eos # (Auto) 0.0 (0-0.3) K/mm3 Baso # (Auto) 0.0 (0.0-0.1) K/mm3 Abs Immat Gran (auto) 0.03 (0.00-0.031) K/mm3 Absolute Neuts (auto) 7.9 H (1.3-6.7) K/mm3 Absolute Nucleated RBC 0.000 (0.0-0.012) K/mm3 Band Neutrophils % Not Reportable Nucleated RBC % 0.0 (0.0-0.2) % Platelet Estimate Adequate (Adequate) Large Platelets Present Giant Platelets Present Schistocytes None seen Sodium 141 (137-145) mmol/L Potassium 4.1 (3.4-5.0) mmol/L Chloride 104 (98-107) mmol/L Carbon Dioxide 23 (22-30) mmol/L Anion Gap 14 H (4-12) mmol/L BUN 29 H D (7-17) mg/dL Creatinine 1.35 H (0.7-1.0) mg/dL Estim Creat Clear Calc 38 ml/min Estimated GFR 40 L (59 - ) Glucose 162 H (65-110) mg/dL Calcium 9.9 (8.4-10.2) mg/dL Total Bilirubin 0.9 (0.2-1.3) mg/dL AST 32 (14-36) U/L ALT 26 (6-35) U/L Alkaline Phosphatase 91 (38-126) U/L Troponin I < 0.012 (0.000-0.034) ng/mL Total Protein 9.0 H (6.3-8.2) g/dL Albumin 5.2 H (3.5-5.1) g/dL Lipase 33 (23-300) U/L Urine Color Dark yellow (Yellow) Urine Appearance Turbid H (Clear) Urine pH 5.0 (5.0-9.0) Ur Specific [place] 1.029 (1.001-1.035) Urine Protein 1+ H (Negative) mg/dL Urine Glucose (UA) Negative (Negative) mg/dL Urine Ketones Negative (Negative) mg/dL Ur Blood (Man) Trace (Negative) Urine Nitrate Negative (Negative) Urine Bilirubin Negative (Negative) Urine Urobilinogen 0.2 (<2.0) mg/dL Add Ur Microanalysis Reviewed Leukocyte Esterase Rfl Negative (Negative) SHWETHA/UL Urine RBC 3-5 H (0-2) /hpf Urine WBC 0-5 (0-3) /hpf Ur Squamous Epith Cells Few (Few) /hpf Urine Bacteria Rare /hpf Urine Casts 6-10 Hyaline Casts Present (None) /lpf Urine Mucus Present /lpf Influenza A (RT-PCR) Negative (Negative) Influenza B (RT-PCR) Negative (Negative) SARS-CoV-2 RNA (RT-PCR) Negative (Negative) Imaging Data Radiologist's impression: ITS Impressions Abdomen/Pelvis CT 06/15/24 19:26 IMPRESSION: Mild esophagitis/antral gastritis. Otherwise, no acute abdominopelvic process detected. ECG Data EKG #1: ECG completion date: 06/15/24 EKG Interpretation: normal rate, sinus rhythm, no ST changes and normal QT Critical Care Time Critical Care Time Critical Care Time: No Discharge Plan Discharge Clinical Impression: Gastroenteritis, Acute dehydration Syncope Qualifiers: Syncope type: unspecified Qualified Code(s): R55 - Syncope and collapse Gastritis Qualifiers: Gastritis type: unspecified gastritis Chronicity: acute Gastritis bleeding: w ithout bleeding Qualified Code(s): K29.00 - Acute gastritis without bleeding Patient Disposition: Home, Self-Care Condition: Improved Instructions: Gastritis (ED), Dehydration (ED), Syncope (ED), Gastroenteritis (ED) Additional Instructions: Return to the ER if you experience fever, worsening abdominal pain with nausea and vomiting, you are unable to keep down liquids or solids, blood in the stool, pain or burning with urination, blood in the urine or any other symptoms that are concerning to you Small, frequent meals. [place] diet. Remain well hydrated. Ondansetron as needed for nausea. Take Protonix as prescribed Follow up with primary care doctor Patient Language: Slovak Prescriptions: New pantoprazole 40 mg tablet,delayed release (DR/EC) 40 mg PO HS 28 Days Qty: 28 0RF ondansetron 4 mg tablet,disintegrating 4 mg PO Q8H PRN (Reason: nausea and vomiting) Qty: 10 0RF No Action multivitamin Tablet 1 tablet PO DAILY estradiol [Vagifem] 10 mcg tablet 10 mcg vaginal 2XW Trelegy Ellipta 200-62.5-25 mcg blister with device 1 inh inhalation DAILY Qty: 60 5RF albuterol sulfate 90 mcg/actuation HFA aerosol inhaler 1 puff inhalation Q4H PRN (Reason: shortness of breath or wheezing) Qty: 8.5 1RF atorvastatin 10 mg tablet 10 mg PO DAILY Qty: 90 1RF Follow-up/Referrals: UNKNOWN,DOCTOR [Primary Care Provider] -
[2024-06-15 17:18] LABS: Basophils Percent Auto 0.1 % (0.2-1.2); Hematocrit 46.3 % (37.0-47.0); Hemoglobin 15.2 g/dL (12.0-15.0); Immature Granulocyte Absolute 0.03 K/mm3 (0.00-0.031); Immature Granulocyte Percent A 0.3 % (0-0.5); Lymphocytes Absolute Auto 0.32 K/mm3 (0.9-3.2); Lymphocytes Percent Auto 3.7 % (18.3-44.2); Mean Corpuscular HGB Conc 32.8 g/dl (32-36); Mean Corpuscular Hemoglobin 30.3 pg (26-34); Mean Corpuscular Volume 92.4 fl (80-100); Mean Platelet Volume 11.2 fl (7.4-10.4); Monocytes Absolute Auto 0.4 K/mm3 (0.1-0.6); Monocytes Percent Auto 4.9 % (2.6-8.5); Neutrophils Absolute Auto 7.9 K/mm3 (1.3-6.7); Platelet Count Result 319 k/mm3 (150-375); Red Blood Count 5.01 M/mm3 (4.2-5.4); White Blood Count 8.6 K/mm3 (4.5-10.0)
--- OUTSIDE RECORDS SUMMARY | 2024-06-15 17:20 | XMS_ITS | Continuity of Care Document ---
Author Organization [facility] Address [address] [place] [address] Phone Care Team Providers Care Sock Lining Stitcher Name Role Phone Farnsworth OD, Agustin Unavailable Unavailable Advance Directives Directive Yes / No Effective Date File Name No Information Encounters Encounter Description Practice Location Reason(s) For Visit Diagnoses Date Provider Providers Copied on Encounter [facility], [address], [place], [place], [id number], [place] tel:[phone] [facility] (formerly [facility]) No Information Mar-0 8-200 2 Farnsworth OD Agustin. [address] , [address], [place], [address], [place]. tel:[phone] Family History Family Member Type Diagnosis Age At Onset No Information Payers Payer name Insurance type Covered republican ID Authoriza tion(s) No Information Social History [...]
[2024-06-15 17:29] LABS: Alanine Aminotransferase 26 U/L (6-35); Albumin Level 5.2 g/dL (3.5-5.1); Alkaline Phosphatase 91 U/L (38-126); Anion Gap 14 mmol/L (4-12); Aspartate Amino Transferase 32 U/L (14-36); Bilirubin,Total 0.9 mg/dL (0.2-1.3); Blood Urea Nitrogen 29 mg/dL (7-17); Calcium 9.9 mg/dL (8.4-10.2); Carbon Dioxide 23 mmol/L (22-30); Chloride 104 mmol/L (98-107); Estimated CRCL calculation 38 ml/min; Estimated Glomerular Filt Rate 40; Glucose 162 mg/dL (65-110); Lipase 33 U/L (23-300); Potassium 4.1 mmol/L (3.4-5.0); Sodium 141 mmol/L (137-145)
[2024-06-15 17:30] VITALS: BP 120/76; PULSE 108; RESP 16; O2SAT 97
[2024-06-15] MEDS: ONDANSETRON INJ 4 MG/2 ML VIAL IV PUSH (17:32)
[2024-06-15] MEDS: SODIUM CHLORIDE 0.9% IV 1,000 ML 999 ML IV CONT (17:32)
[2024-06-15 17:41] LABS: Troponin I < 0.012 ng/mL (0.000-0.034)
[2024-06-15 17:43] LABS: Giant Platelets Present; Large Platelets Present; Platelet Estimate Adequate (Adequate)
[2024-06-15 17:49] LABS: Schistocytes None Seen
[2024-06-15 18:30] VITALS: BP 124/69; PULSE 98; RESP 16; O2SAT 97
[2024-06-15 19:13] LABS: Influenza A QL RT-PCR Negative (Negative); Influenza B QL RT-PCR Negative (Negative); SARS-CoV-2 RNA PCR Negative (Negative)
[2024-06-15 19:42] LABS: Add Urine Microscopic? YES; Appearance Urine Turbid (Clear); Bacteria Urine Rare /hpf; Bilirubin Urine Negative (Negative); Blood Urine Trace (Negative); Color Urine Dark Yellow (Yellow); Glucose Urine UA Negative (Negative); Hyaline Casts Urine Present /lpf; Ketones Urine Negative (Negative); Leukocyte Esterase Ur Negative LEU/UL (Negative); Mucus Urine Present /lpf; Need Manual Microscopic Reviewed; Nitrate Urine Negative (Negative); Protein Urine 1+ mg/dL (Negative); Specific Grav Ur 1.029 (1.001-1.035); Squamous Epithelial Cell Urine Few /hpf (Few); Urobilinogen Urine 0.2 mg/dL (<2.0); WBC Urine 0-5 /hpf (0-3)
[2024-06-15] MEDS: PANTOPRAZOLE SODIUM IV 40 MG VIAL IV PUSH (20:18)
[2024-06-15 20:25] VITALS: BP 142/78; PULSE 81; RESP 17; O2SAT 99
== END 2024-06-15 20:26 | disposition home or self-care (01) ==
PROVIDERS: Emergency Provider Physician Assistant
DX: K20.0 Eosinophilic esophagitis (principal); K29.70 Gastritis, unspecified, without bleeding; R55 Syncope and collapse; R94.31 Abnormal electrocardiogram [ECG] [EKG]; J45.909 Unspecified asthma, uncomplicated; F41.9 Anxiety disorder, unspecified; F32.A Depression, unspecified; Z20.822 Contact with and (suspected) exposure to COVID-19; Z98.890 Other specified postprocedural states; Z82.49 Family history of ischemic heart disease and other diseases of the circulatory system
CPT/HCPCS: 36415; 74177; 80053; 81001; 83690; 84484; 85025; 87426; 87636; 87804; 93005; 96361; 96374; 96375; 99284; J2405; J2470; J7030; Q9967

== ENCOUNTER 2024-11-09 13:19 | Emergency (ER) | payer OTHER, SELFPAY ==
--- OUTSIDE RECORDS SUMMARY | 2024-11-09 13:22 | XMS_ITS | Continuity of Care Document ---
Author Organization [facility] Address [address] [place] [address] Phone Care Team Providers Care Diamond Selector Name Role Phone Farnsworth OD, Agustin Unavailable Unavailable Advance Directives Directive Yes / No Effective Date File Name No Information Encounters Encounter Description Practice Location Reason(s) For Visit Diagnoses Date Provider Providers Copied on Encounter [facility], [address], [place], [place], [id number], [place] tel:[phone] [facility] No Information Mar-0 8-200 2 Farnsworth OD Agustin. [address] , [address], [place], [address], [place]. tel:[phone] Family History Family Member Type Diagnosis Age [...]
--- OUTSIDE RECORDS SUMMARY | 2024-11-09 13:23 | XMS_ITS | Continuity of Care Document ---
Author Organization [facility] Address [address] [place] [address] Phone Care Team Providers Care Conference Coordinator Name Role Phone Farnsworth OD, Agustin Unavailable Unavailable Advance Directives Directive Yes / No Effective Date File Name No Information Encounters Encounter Description Practice Location Reason(s) For Visit Diagnoses Date Provider Providers Copied on Encounter [facility], [address], [place], [place], [id number], [place] tel:[phone] [facility] No Information Mar-0 8-200 2 Farnsworth OD Agustin. [address] , [address], [place], [address], [place]. tel:[phone] Family History Family Member Type Diagnosis Age At Onset No Information Payers Payer name Insurance type Covered libertarian ID Authoriza tion(s) No Information Social History [...]
[2024-11-09 13:37] VITALS: BP 135/67; PULSE 64; RESP 18; TEMP 36.1; O2SAT 97
--- NOTE | 2024-11-09 14:08 | ED_ITS ---
HPI - URI/Sore Throat General Chief Complaint: Asthma Stated Complaint: Asthma Time Seen by Provider: 11/09/24 14:08 Source: patient Mode of arrival: ambulatory Limitations: no limitations History of Present Illness HPI Narrative: 63 y/o female with hx asthma presented for c/o asthma flare for 3 weeks. Pt is completing a course of steroids as prescribed by pcp on 11/03. Pt says she is done with them tomorrow (the Rx appears to be for 12 day taper). Pt has been using albuterol inhaler 3-4 times daily as well as her Trelegy. Denies wheezing, chest pain or fever. Says she feels dizzy at times, and the chest feels tight. Related Data Home Medications ?Medication ?Instructions ?Recorded ?Confirmed ?Last Taken ?Type multivitamin 1 tablet PO DAILY 10/22/20 11/09/24 Unknown History estradiol 10 mcg vaginal tablet 10 mcg vaginal 2XW 02/05/24 11/09/24 Unknown History (Vagifem) Allergies Allergy/AdvReac Type Severity Reaction Status Date / Time azithromycin Allergy Intermediate Hives Verified 11/09/24 13:45 poison osorio extract Allergy Mild Rash Verified 11/09/24 13:45 hydrocodone AdvReac Intermediate Nausea and Verified 11/09/24 13:45 Vomiting erythromycin base AdvReac Unknown TACHY Verified 11/09/24 13:45 HEARTRATE Review of Systems Review of Systems: CONSTITUTIONAL: Denies body aches, fever, chills, or sweats. EYES: Denies visual changes, redness, or discharge. ENT: Denies rhinorrhea, congestion, sore throat, or otalgia. CARDIOVASCULAR: Denies chest pain, palpitations, or edema. RESPIRATORY: Reports cough, denies sob, wheezing. GASTROINTESTINAL: Denies abdominal pain, nausea, vomiting, or diarrhea. SKIN: Denies rash NEUROLOGIC: Denies headache, numbness, tingling, or weakness. PSYCH: Denies depression or anxiety. All systems reviewed & are unremarkable except as noted in HPI and below PMFSH Past Medical History Medical History ) Anxiety Depression Asthma Surgical History Surgical History ) Hx of tonsillectomy H/O wisdom tooth extraction H/O elbow surgery S/P knee surgery H/O: S/P appendectomy Family History Family History ) Mother Diabetes mellitus Hypertension Cerebrovascular accident Son Asthma Depression Social History Social History ) Social History: 10/29/24 Very confident with medical forms Smoking status: Never smoker Second hand tobacco smoke exposure: Yes Alcohol intake: current Drinks per week: 5 Alcohol use details: wine/whiskey Substance use: current Substance use type: marijuana Other substance usage details: hasn't used for >2 months Do You Feel Safe in your Home?: Yes Lack of Transportation: No Lack of Food: Never True Current Housing: I Have Housing Concerned About Future Housing: No Difficulty Paying Gas/Electric Bills: No Difficulty Paying for Meds: No Currently Unemployed: No Education: Master's Degree or Higher Difficulty w/ Childcare or Family Care: No Living arrangements: with family 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 Please see nursing chart for further information. There is no relevant family history pertinent to the presenting complaint Exam Narrative: GENERAL: Well-appearing, in no acute distress. EYES: EOMI. No redness or drainage. Conjunctivae normal. ENT: Mucous membranes pink and moist. No rhinorrhea. NECK: Normal AROM. Supple. CHEST: No respiratory distress. Lungs clear to all nicholas, diminished bases, pt does not take full deep breath. 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 HEART: Regular rate and rhythm. No murmur appreciated. EXTREMITIES: Normal range of motion. No edema. SKIN: Warm, dry, no rash. Capillary refill normal. Normal skin turgor. NEURO: Alert and oriented x3. Gait steady. PSYCH: Normal affect. Course Course Emergency Course: Patient is aware of diagnosis, understands and agrees to treatment plan. Anticipatory guidance given. Patient agrees to follow-up as directed and is aware of reasons to seek care at the emergency department. Portions of this record may have been created with voice recognition software [employer] of Care: Express Care Visit Vital Signs Vital signs: Vital Signs Temperature 96.9 F L 11/09/24 13:37 Pulse Rate 64 11/09/24 13:37 Respiratory Rate 18 11/09/24 13:37 Blood Pressure 135/67 11/09/24 13:37 Pulse Oximetry 97 11/09/24 13:37 Oxygen Delivery Room Air 11/09/24 13:37 Temperature 96.9 F L 11/09/24 13:37 Pulse Rate 65 11/09/24 14:25 Respiratory Rate 18 11/09/24 14:25 Blood Pressure 135/67 11/09/24 13:37 Pulse Oximetry 97 11/09/24 14:25 Oxygen Delivery Room Air 11/09/24 13:37 MDM - URI/Sore Throat MDM Narrative Medical decision making narrative: Discussed physical exam findings. Patient requesting nebulizer treatment.Pt reports improvement in 'tightness.' VSS. Pt is completing course of steroids as prescribed by pcp. She has inhalers. Advised supportive measures and signs/symptoms to go to the ER. Pt is appropriate for outpt treatment and f/u. Differential Diagnosis Differential diagnosis: Likely upper respiratory infection, sinusitis, viral infection, bronchitis, pharyngitis and other (Angioedema, perforation, asthma, pneumonia, PE, tension pneumothorax, cardiac tamponade NC, pericarditis, pleural effusion, CHF, bronchitis, cardiac arrhythmia) Discharge Plan Discharge Clinical Impression: Asthma with acute exacerbation Patient Disposition: Home Condition: Stable Instructions: Antibiotic Form, Asthma (ED) Additional Instructions: Continue steroid, inhalers and antihistamine as previously prescribed Avoid triggers Follow up with your primary care provider, call tomorrow to schedule appointment Go to the ER for worsening symptoms or concerns Patient Language: Hungarian Prescriptions: No Action multivitamin Tablet 1 tablet PO DAILY estradiol [Vagifem] 10 mcg tablet 10 mcg vaginal 2XW ondansetron 4 mg tablet,disintegrating 4 mg PO Q8H PRN (Reason: nausea and vomiting) Qty: 10 0RF atorvastatin 10 mg tablet 10 mg PO DAILY Qty: 90 1RF Trelegy Ellipta 200-62.5-25 mcg blister with device 1 inh inhalation DAILY Qty: 60 5RF montelukast [Singulair] 10 mg tablet 10 mg PO QHS Qty: 90 0RF albuterol sulfate 90 mcg/actuation HFA aerosol inhaler 1 puff inhalation Q4H PRN (Reason: shortness of breath or wheezing) Qty: 8.5 1RF prednisone 20 mg tablet 20 mg PO .COMPLEX Qty: 15 0RF Rx Instructions: 2 tablets daily x 3 days, 1.5 tablets daily x 3 days, 1 tablet daily x 3 days, 1/2 tablet daily x 3 days Follow-up/Referrals: Swapna Martinez, [employer]MB[employer] T[employer]PER MACHINE-C [Primary Care Provider] -
[2024-11-09] MEDS: IPRATROPIUM 0.5 MG/ALBUTEROL SULFATE 2.5 MG AMPUL.NEB 3 ML INHALATION (14:21)
[2024-11-09 14:25] VITALS: PULSE 65; RESP 18; O2SAT 97
[2024-11-09 14:44] VITALS: PULSE 78; RESP 20; O2SAT 97
== END 2024-11-09 14:43 | disposition home or self-care (01) ==
PROVIDERS: Emergency Provider Nurse Practitioner Family; PCP Nurse Practitioner Family
DX: J45.901 Unspecified asthma with (acute) exacerbation (principal)
CPT/HCPCS: 94640; 99212; G0463